=== PATIENT | female | born 1965 | race African-American/Black ===

== ENCOUNTER → 2019-04-13 | Day surgery (SDC) | payer OTHER ==
--- NOTE | 2019-04-14 18:39 | PATH ---
Surgical Pathology Report Patient Name: PATRICE ALEXANDRA [facility]. Rec. #: [id number] /Age/Gender: 1965 (Age: 54) / F Account: [id number] Location: [facility] Taken: 04/13/2019 Received: 04/13/2019 Reported: 04/14/2019 Physicians: Nemesio Magana M.D. Specimen(s) Received A: RIGHT BREAST SPECIMEN - WITH CALCIFICATIONS B: RIGHT BREAST SPECIMEN - WITHOUT CALCIFICATIONS Clinical History Nonpalpable lesion, microcalcification, suspicious Final Diagnosis A. 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 B. 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 Comment: Immunohistochemical stain E-Cadeherin (block A1 and B1) performed and interpreted at [facility] highlight the benign ductal hyperplasia. Electronically Signed Fernando Bruner M.D. Gross Description A. Received in formalin labeled "right breast specimen-with calcification" are multiple cores singleton to yellow cylindrical portions of fibroadipose tissue measuring up to 2 cm in length and averages 0.2 cm in diameter. The specimen is entirely submitted in 2 cassettes. B. Received in formalin labeled "right breast specimen-without calcification" are multiple cores singleton to yellow cylindrical portions of fibroadipose tissue ranging from 1cm to 2 cm in length and averages 0.2 cm in diameter. The specimen is entirely submitted in 1 cassette. Time to formalin fixation: 5 minutes Total formalin fixation time: 9 hours. _ JEFF/04/13/2019 linda/04/13/2019
== END | disposition home or self-care (01) ==
LOC: FMAMMOTONE 09:30
PROVIDERS: ATTEND Internal Medicine Pulmonary Disease
PROC: 0HBT3ZX Excision of Right Breast, Percutaneous Approach, Diagnostic (ICD-10-PCS; principal; 2019-04-13)
DX: N60.91 Unspecified benign mammary dysplasia of right breast (principal); N60.21 Fibroadenosis of right breast; N60.11 Diffuse cystic mastopathy of right breast; N64.89 Other specified disorders of breast; R92.1 Mammographic calcification found on diagnostic imaging of breast
CPT/HCPCS: 19081; 87899; 88305-TC; 88342-TC; A4648